=== PATIENT | female | born 1995 | race Caucasian/White ===

== ENCOUNTER 2021-10-12 00:57 | Emergency (ER) | payer OTHER, MEDICAID ==
[~2021-10-12] VITALS: Ht 149.9 cm; Wt 41.8 kg
[2021-10-12] MEDS ORDERED: LORAZEPAM 0.5MG TABLET PO ONE (01:45)
[2021-10-12 01:55] LABS: BASOPHILS % 0.9 % (0.0-2.0); EOSINOPHILS % 1.7 % (0.0-5.0); HEMATOCRIT. 37.3 % (36.0-48.0); HEMOGLOBIN. 12.7 g/dL (12.0-16.0); LYMPHOCYTES % 28.9 % (20.0-50.0); MEAN CORPUSCULAR HEMOGLOBIN 32.3 pg (28.0-32.0); MEAN CORPUSCULAR VOLUME 94.9 fL (81.0-99.0); MEAN PLATELET VOLUME 10.4 fl (7.4-10.4); MONOCYTES % 10.3 % (2.0-8.0); NEUTROPHILS % 58.2 % (40.0-76.0); PLATELET 175 x1000/uL (130-400); RED BLOOD CELL COUNT 3.93 mill/uL (4.2-5.4); RED CELL DISTRIBUTION WIDTH 14.6 % (11.6-14.6)
[2021-10-12 02:07] LABS: CHLORIDE 106 mEq/L (98-107)
[2021-10-12 02:11] LABS: ETHANOL BLOOD < 10 mg/dL
[2021-10-12 02:16] LABS: HCG SCREEN NEGATIVE
[2021-10-12 02:55] LABS: CLARITY URINE CLEAR (CLEAR); COLOR URINE YELLOW (YELLOW); KETONES URINE NEGATIVE (NEGATIVE); LEUKOCYTE ESTERASE URINE 2+ (NEGATIVE); NITRITE URINE NEGATIVE (NEGATIVE); OCCULT BLOOD URINE 2+ (NEGATIVE); PROTEIN URINE NEGATIVE (NEGATIVE); SPECIFIC GRAVITY URINE 1.005 (1.005-1.030); UROBILINOGEN URINE 0.2 E.U./dL (0.2-1.0)
[2021-10-12 03:06] LABS: *AMPHETAMINES SCREEN URINE NEGATIVE (NEGATIVE); *BARBITURATES SCREEN URINE NEGATIVE (NEGATIVE); *BENZODIAZEPINES SCREEN URINE NEGATIVE (NEGATIVE); *COCAINE SCREEN URINE NEGATIVE (NEGATIVE)
[2021-10-12 03:07] LABS: METHADONE URINE SCREEN NEGATIVE (NEGATIVE)
[2021-10-12 03:08] LABS: OPIATES URINE SCREEN NEGATIVE (NEGATIVE); PHENCYCLIDINE URINE SCREEN NEGATIVE (NEGATIVE)
[2021-10-12 03:09] LABS: CANNABINOID URINE SCREEN PRESUMTIVE POSITIVE (NEGATIVE)
[2021-10-12] MEDS ORDERED: NITROFURANTOIN 100MG M/M CAPSULE PO SCH (09:00)
[2021-10-12] MEDS ORDERED: METHYLPHENIDATE HCL 5MG TABLET PO SCH (10:15)
[2021-10-12] MEDS ORDERED: PAROXETINE HCL 10MG TABLET PO SCH (10:15)
[2021-10-12 12:00] VITALS: BP 110/68
[2021-10-12] MEDS ORDERED: ONDANSETRON 4MG ODT PO ONE (14:15)
== END 2021-10-12 14:32 ==
LOC: ER 00:57
DX: R45.851 Suicidal ideations (principal); R82.71 Bacteriuria; Z20.822 Contact with and (suspected) exposure to COVID-19
CPT/HCPCS: 36415; 80053; 80305; 80307; 80320; 80329; 81003; 81025; 84703; 85025; 99285; C9803; Q0162; U0003; U0005; G0480

== ENCOUNTER 2022-01-16 12:02 | Emergency (ER) | payer OTHER, MEDICAID ==
[~2022-01-16] VITALS: Ht 149.9 cm; Wt 50.0 kg
[2022-01-16 12:19] VITALS: BP 103/70
[2022-01-16] MEDS ORDERED: HYDROCODONE/ACETAMINOPHEN 5/325MG TABLET PO ONE (12:45)
== END 2022-01-16 16:53 | disposition left against medical advice (07) ==
LOC: ER 12:04
DX: Z53.21 Procedure and treatment not carried out due to patient leaving prior to being seen by health care provider (principal)